=== PATIENT | female | born 1965 | race Caucasian/White ===

== ENCOUNTER 2019-02-11 18:44 | Emergency (ER) | payer SELFPAY ==
[~2019-02-11] VITALS: Ht 154.9 cm; Wt 110.0 kg
[2019-02-11 18:49] VITALS: Ht 154.9 cm; Wt 110.0 kg
[2019-02-11 20:39] VITALS: BP 161/71; PULSE 71; RESP 20
--- NOTE | 2019-02-12 01:05 | ERD ---
ER Documentation Chief Complaint Chief Complaint bib ra from home for vertigo x 2 hours HPI 53-year-old female brought in by ambulance from home for dizziness and hypertension for the past 2 hours. Patient normally has hypertension for which she takes benazepril. She has been compliant with her medications. Today while at a green party, she started to feel lightheaded but denies any room spinning dizziness as is noted in the triage note. At that time her blood pressure was checked and her systolic blood pressure was in the 200s. She had no associated chest pain, headache, shortness of breath, vision disturbance, focal weakness or numbness at that time. Currently her blood pressure has improved without any intervention and she feels much better. She is denying any symptoms on my evaluation of her. ROS All systems reviewed and are negative except as per history of present illness. Allergies Allergies: Coded Allergies: No Known Allergy (Unverified , 02/11/19) PMhx/Soc Medical and Surgical Hx: pt denies Surgical Hx Hx Cardiac Disorders: Yes (htn) Hx Alcohol Use: No Hx Substance Use: No Hx Tobacco Use: No Smoking Status: Never smoker FmHx Family History: No diabetes Physical Exam Vitals Vital Signs Date Temp Pulse Resp B/P (MAP) Pulse Ox O2 O2 Flow FiO2 Time Delivery Rate 02/11/19 98.1 71 20 161/71 100 Room Air 20:39 (101) 02/11/19 98.2 89 20 180/100 100 Room Air 19:00 (126) 02/11/19 98.1 90 19 202/90 100 18:49 (127) Physical Exam Const: No acute distress Head: Atraumatic Eyes: Normal Conjunctiva, PERRLA, EOMI, no nystagmus ENT: Normal External Ears, Nose and Mouth. Neck: Full range of motion. No meningismus. Resp: Clear to auscultation bilaterally Cardio: Regular rate and rhythm, no murmurs. 2+ distal pulses Abd: Soft, non tender, non distended. Normal bowel sounds Skin: No petechiae or rashes Back: No midline or flank tenderness Ext: No cyanosis, or edema Neur: Awake and alert, normal speech, no facial asymmetry. Sensations grossly intact in all 4 extremities Psych: Normal Mood and Affect Procedures/MDM Patient is presenting for hypertension and dizziness which has improved without intervention. She was initially hypertensive upon arrival. When I evaluated patient, her systolic blood pressure was in the 160s and she felt much better and was eager to leave without any further workup. Patient is asymptomatic with an improvement of her blood pressure, I do not feel that any further workup is necessary. I have a low suspicion for hypertensive emergency or acute stroke. I advised follow-up with primary care physician within the next 1 week and close monitoring of her blood pressures at home daily. Return precautions were given. Departure Diagnosis: Primary Impression: Hypertension Hypertension type: unspecified Qualified Codes: I10 - Essential (primary) hypertension Additional Impression: Dizziness Condition: Stable Patient Instructions: High Blood Pressure (Hypertension), Dizziness, Unk Cause Additional Instructions: Make an appointment to see her primary care doctor on Wednesday to recheck your blood pressure. Return to the ER for any worsening symptoms. SOLO OLGUIN MD Feb 12, 2019 01:05
== END 2019-02-11 20:41 | disposition home or self-care (01) ==
LOC: E/R 18:44
DX: I10 Essential (primary) hypertension (principal)
CPT/HCPCS: 99282